=== PATIENT | female | born 1945 | race Hispanic/Latino ===

== ENCOUNTER 2019-02-09 07:16 | Outpatient (CLI) | payer MEDICARE | END 2019-02-09 07:17 | disposition home or self-care (01) | LOC: CARDIO 07:16 | DX: R06.02 Shortness of breath (principal); M06.9 Rheumatoid arthritis, unspecified ==

== ENCOUNTER 2019-02-25 08:27 | Outpatient (CLI) | payer MEDICARE | END 2019-02-25 08:28 | disposition home or self-care (01) | LOC: RAD 08:27 ==